=== PATIENT | female | born 1940 | race Caucasian/White ===

== ENCOUNTER 2018-03-16 11:46 | Day surgery (SDC) | payer OTHER ==
[~2018-03-16] VITALS: Ht 149.9 cm; Wt 79.5 kg
[2018-03-16] MEDS ORDERED: LOVA10TA PO (12:35)
[2018-03-16] MEDS ORDERED: Potassium Citrate PO (12:35)
[2018-03-16] MEDS ORDERED: AMOX500T PO (12:35)
[2018-03-16] MEDS ORDERED: HYDR-3653 PO (12:35)
[2018-03-16] MEDS ORDERED: ALLO300T PO (12:35)
[2018-03-16] MEDS ORDERED: LISI30TA4 PO (12:35)
[2018-03-16] MEDS ORDERED: DIAZ5TAB PO (12:35)
[2018-03-16] MEDS ORDERED: LATA2.5D3 EACHEYE (12:35)
[2018-03-16] MEDS ORDERED: ALEN70TA5 PO (12:35)
[2018-03-16] MEDS ORDERED: POLY1DRO OP (12:35)
[2018-03-16] MEDS ORDERED: MINE5OIN OP (12:35)
[2018-03-16] MEDS ORDERED: CHOL40002 PO (12:41)
[2018-03-16] MEDS ORDERED: Iron PO (12:41)
[2018-03-16] MEDS ORDERED: MULT-750 PO (12:41)
[2018-03-16] MEDS ORDERED: CALC-533 PO (12:41)
[2018-03-16] MEDS ORDERED: VIT1CAPS42 PO (12:41)
[2018-03-16] MEDS ORDERED: VITA100T PO (12:41)
[2018-03-16] MEDS ORDERED: ASPI-621 PO (12:41)
[2018-03-16] MEDS ORDERED: FISH1CAP PO (12:41)
[2018-03-16 12:47] VITALS: BP 158/72
[2018-03-16] MEDS ORDERED: FENTANYL PF 100 MCG/2ML ONE (14:43)
[2018-03-16] MEDS ORDERED: MIDAZOLAM 1 MG/ML, 5ML ONE (14:43)
[2018-03-16] MEDS ORDERED: HEPARIN 1,000 UNITS/ML, 10ML ONE (14:46)
[2018-03-16] MEDS ORDERED: VERAPAMIL 2.5 MG/ML, 2ML ONE (14:46)
[2018-03-16] MEDS ORDERED: SODIUM CHLORIDE 0.9% 1,000 ML IV SCH (15:27)
== END 2018-03-16 17:15 | disposition home or self-care (01) ==
LOC: CACL 11:46
PROVIDERS: ATTEND Internal Medicine Cardiovascular Disease
DX: I35.0 Nonrheumatic aortic (valve) stenosis (principal); I10 Essential (primary) hypertension; E78.2 Mixed hyperlipidemia; Z79.82 Long term (current) use of aspirin; Z79.899 Other long term (current) drug therapy; Z88.1 Allergy status to other antibiotic agents; Z88.8 Allergy status to other drugs, medicaments and biological substances
CPT/HCPCS: 93454; 99156; 99157; C1769; C1894; J1644; J2250; J3010; Q9967

== ENCOUNTER → 2018-03-29 | Outpatient (CLI) | payer OTHER ==
[~2018-03-29] MED LIST: ALEN70TA5 PO; ALLO300T PO; AMOX500T PO; ASPI-621 PO; CALC-533 PO; CHOL40002 PO; DIAZ5TAB PO; FISH1CAP PO; HYDR-3653 PO; Iron PO; LATA2.5D3 EACHEYE; LISI30TA4 PO; LOVA10TA PO; MINE5OIN OP; MULT-750 PO; OMNIPAQUE 350 MG/ML, 150 ML BOTTLE ONE; POLY1DRO OP; Potassium Citrate PO; VIT1CAPS42 PO; VITA100T PO
== END | disposition home or self-care (01) ==
LOC: CVU 09:04
PROVIDERS: ATTEND Internal Medicine Cardiovascular Disease
DX: I65.23 Occlusion and stenosis of bilateral carotid arteries (principal); I70.0 Atherosclerosis of aorta; I11.9 Hypertensive heart disease without heart failure; K76.0 Fatty (change of) liver, not elsewhere classified; K57.30 Diverticulosis of large intestine without perforation or abscess without bleeding
CPT/HCPCS: 71275; 74174; 93880; 94060; 94726; 94729; Q9967

== ENCOUNTER 2018-04-17 07:13 | Inpatient (IN) | payer MEDICARE, OTHER ==
[~2018-04-17] VITALS: Ht 149.9 cm; Wt 84.8 kg
[~2018-04-17 07:13] MED LIST changes: -ASPI-621 PO; +ASPI81TA45 PO; +CHLORHEXIDINE 15 ML UDC ONE; -OMNIPAQUE 350 MG/ML, 150 ML BOTTLE ONE
[2018-04-17] MEDS ORDERED: SODIUM CHLORIDE 0.9% 1,000 ML IV ONE (07:44)
[2018-04-17] MEDS ORDERED: CHLORHEXIDINE 15 ML UDC MM PRN (08:00)
[2018-04-17] MEDS ORDERED: ONDANSETRON 2MG/ML, 2ML IVPush PRN ×2 (08:00→12:00)
[2018-04-17 08:02] VITALS: BP 124/73
[2018-04-17 08:19] LABS: BASOPHILS # (AUTO) 0.03 x10^3/uL (0-0.1); BASOPHILS % (AUTO) 1 % (0-1); EOSINOPHILS # (AUTO) 0.12 x10^3/uL (0-0.4); EOSINOPHILS % (AUTO) 2 % (1-7); LYMPHOCYTES # (AUTO) 1.29 x10^3/uL (1-3.4); LYMPHOCYTES % (AUTO) 24 % (22-44); MD NO; MEAN CORPUSCULAR HEMOGLOBIN 31.1 pg (27.0-34.8); MEAN CORPUSCULAR HGB CONC 32.7 g/dL (32.4-35.8); MEAN PLATELET VOLUME 8.1 fL (7.4-10.4); MONOCYTES # (AUTO) 0.65 x10^3/uL (0.2-0.8); MONOCYTES % (AUTO) 12 % (2-9); NEUTROPHILS % (AUTO) 62 % (42-75); PLATELET COUNT 249 x10^3/uL (130-400); RED BLOOD COUNT 4.44 x10^6/uL (3.82-5.3); RED CELL DISTRIBUTION WIDTH 14.6 % (9.6-15.2)
[2018-04-17 08:26] LABS: INTERNATIONAL NORMALIZED RATIO 1.02 (0.93-1.1); PROTHROMBIN TIME 10.8 Seconds (9.6-11.5)
[2018-04-17 08:27] LABS: ALANINE AMINOTRANSFERASE 30 U/L (12-78); ALBUMIN 3.4 g/dL (3.4-5.0); ANION GAP 6 mmol/L (5-15); CALCIUM 8.4 mg/dL (8.5-10.1); CHLORIDE 109 mmol/L (98-107)
[2018-04-17 08:32] LABS: ALKALINE PHOSPHATASE 95 U/L (45-117); BILIRUBIN,TOTAL 0.4 mg/dL (0.2-1.0); TOTAL PROTEIN 6.7 g/dL (6.4-8.2)
[2018-04-17] MEDS ORDERED: FENTANYL PF 250 MCG/5ML ONE (10:17)
[2018-04-17] MEDS ORDERED: ONDANSETRON 2MG/ML, 2ML ONE (10:31)
[2018-04-17] MEDS ORDERED: ROCURONIUM 10 MG/ML,10ML ONE (10:31)
[2018-04-17] MEDS ORDERED: CEFAZOLIN 1,000 MG ONE (10:31)
[2018-04-17] MEDS ORDERED: PROPOFOL 10 MG/ML, 20ML ONE (10:31)
[2018-04-17] MEDS ORDERED: PROTAMINE SULFATE 10 MG/ML, 5ML ONE (10:51)
[2018-04-17] MEDS ORDERED: SUCCINYLCHOLINE 20 MG/ML, 10ML ONE (10:57)
[2018-04-17] MEDS ORDERED: HYDROcodone/APAP 5/325 TABLET PO PRN (12:00)
[2018-04-17] MEDS ORDERED: DIAZEPAM 5 MG TABLET PO PRN (12:00)
[2018-04-17] MEDS ORDERED: ASPIRIN 81 MG TABLET EC PO SCH (12:00)
[2018-04-17] MEDS ORDERED: ACETAMINOPHEN 325 MG TABLET PO PRN (12:00)
[2018-04-17] MEDS ORDERED: hydrALAzine 20 MG/ML, 1ML IVPush PRN (12:00)
[2018-04-17] MEDS ORDERED: CLOPIDOGREL 300 MG TABLET PO ONE (12:00)
[2018-04-17] MEDS: LISINOPRIL 10 MG TABLET PO SCH (12:27)
[2018-04-17] MEDS ORDERED: LABETALOL 5MG/ML, 20ML ONE (13:44)
[2018-04-17] MEDS: LABETALOL 20 MG/4 ML IVPush PRN ×4 (13:47→16:01)
[2018-04-17 19:07] VITALS: BP 132/66
[2018-04-17] MEDS ORDERED: LATANOPROST OPHTH 0.005%, 2.5ML EACHEYE SCH (21:00)
[2018-04-17] MEDS ORDERED: LOVASTATIN 10 MG TABLET PO SCH (21:00)
[2018-04-18 02:30] VITALS: BP 137/70
[2018-04-18 06:01] LABS: ANION GAP 9 mmol/L (5-15); CALCIUM 8.2 mg/dL (8.5-10.1); CHLORIDE 109 mmol/L (98-107)
[2018-04-18 06:03] LABS: BASOPHILS # (AUTO) 0.02 x10^3/uL (0-0.1); BASOPHILS % (AUTO) 0 % (0-1); EOSINOPHILS % (AUTO) 0 % (1-7); LYMPHOCYTES # (AUTO) 0.64 x10^3/uL (1-3.4); LYMPHOCYTES % (AUTO) 7 % (22-44); MD NO; MEAN CORPUSCULAR HEMOGLOBIN 31.5 pg (27.0-34.8); MEAN CORPUSCULAR VOLUME 95.5 fL (80-100); MEAN PLATELET VOLUME 8.4 fL (7.4-10.4); MONOCYTES # (AUTO) 0.36 x10^3/uL (0.2-0.8); MONOCYTES % (AUTO) 4 % (2-9); NEUTROPHILS # (AUTO) 7.98 x10^3/uL (1.8-6.8); NEUTROPHILS % (AUTO) 89 % (42-75); PLATELET COUNT 202 x10^3/uL (130-400); RED BLOOD COUNT 4.24 x10^6/uL (3.82-5.3); RED CELL DISTRIBUTION WIDTH 14.8 % (9.6-15.2)
[2018-04-18 08:00] VITALS: BP 144/72
[2018-04-18] MEDS: LISINOPRIL 10 MG TABLET PO SCH (08:32)
[2018-04-18] MEDS ORDERED: CLOPIDOGREL 75 MG TABLET PO SCH (09:00)
[2018-04-18] MEDS ORDERED: ASPIRIN 81 MG TABLET EC PO SCH (09:00)
[2018-04-18] MEDS ORDERED: CLOP75TA PO (09:59)
[2018-04-18 13:59] VITALS: BP 104/64
[2018-04-22] MEDS ORDERED: ALENDRONATE 70 MG TABLET PO SCH (06:30)
== END 2018-04-18 15:52 | disposition home or self-care (01) | DRG 266 ==
LOC: ORIP 07:13 → CCU 11:43 → 5SO 18:45
PROVIDERS: ADMIT Internal Medicine Cardiovascular Disease; ATTEND Internal Medicine Cardiovascular Disease
PROC: B246ZZ4 Ultrasonography of Right and Left Heart, Transesophageal (ICD-10-PCS; 2018-04-17)
PROC: 03HY32Z Insertion of Monitoring Device into Upper Artery, Percutaneous Approach (ICD-10-PCS; 2018-04-17)
PROC: 4A133B1 Monitoring of Arterial Pressure, Peripheral, Percutaneous Approach (ICD-10-PCS; 2018-04-17)
PROC: 4A133J1 Monitoring of Arterial Pulse, Peripheral, Percutaneous Approach (ICD-10-PCS; 2018-04-17)
PROC: 02RF38Z Replacement of Aortic Valve with Zooplastic Tissue, Percutaneous Approach (ICD-10-PCS; principal; 2018-04-17 09:30)
DX: I35.0 Nonrheumatic aortic (valve) stenosis (principal); Z00.6 Encounter for examination for normal comparison and control in clinical research program; I50.31 Acute diastolic (congestive) heart failure; I50.9 Heart failure, unspecified; I11.0 Hypertensive heart disease with heart failure; E78.2 Mixed hyperlipidemia; Z88.2 Allergy status to sulfonamides
CPT/HCPCS: 33361; 36415; 80048; 80053; 83880; 85025; 85347; 85610; 86850; 86900; 86923; 87081; 93005; 93308; 93312; 93321; 93325; 93355; C1760; C1769; C1894; G0378; J0690; J2405; J2704; J2720; J3010; J0330; J0360; J3490; Q9967

== ENCOUNTER → 2018-05-15 | Outpatient (CLI) | payer OTHER ==
[~2018-05-15] MED LIST changes: -CHLORHEXIDINE 15 ML UDC ONE; +CLOP75TA PO
== END | disposition home or self-care (01) ==
LOC: CVU 10:44
PROVIDERS: ATTEND Internal Medicine Cardiovascular Disease
DX: I08.0 Rheumatic disorders of both mitral and aortic valves (principal); I10 Essential (primary) hypertension; E78.5 Hyperlipidemia, unspecified
CPT/HCPCS: 93306

== ENCOUNTER 2018-07-14 16:56 | Emergency (ER) | payer OTHER ==
[~2018-07-14] VITALS: Ht 149.9 cm; Wt 85.0 kg
[~2018-07-14 16:56] MED LIST changes: -ALEN70TA5 PO; +ALEN70TA6 PO
--- NOTE | 2018-07-14 18:23 | NUR ---
MD PLACED RHINO ROCKET RIGHT NARE, PT TOLERATING WELL.
--- NOTE | 2018-07-14 19:16 | NUR ---
no bleeding noted from right nare.
[2018-07-14 19:17] VITALS: BP 175/83
== END 2018-07-14 19:19 | disposition home or self-care (01) ==
LOC: ED 18:33
DX: R04.0 Epistaxis (principal); Z88.2 Allergy status to sulfonamides
CPT/HCPCS: 30901; 99284

== ENCOUNTER → 2019-04-11 | Outpatient (CLI) | payer OTHER | END | disposition home or self-care (01) | LOC: CVU 13:42 | PROVIDERS: ATTEND Internal Medicine Cardiovascular Disease | DX: I34.8 Other nonrheumatic mitral valve disorders (principal); I10 Essential (primary) hypertension; E78.5 Hyperlipidemia, unspecified | CPT/HCPCS: 93306 ==

== ENCOUNTER 2020-01-03 13:15 | Outpatient (CLI) | payer OTHER | END 2020-01-03 23:59 | disposition home or self-care (01) | LOC: STAR 13:15 | PROVIDERS: ATTEND Anesthesiology | DX: I25.2 Old myocardial infarction (principal) | CPT/HCPCS: 93005 ==